=== PATIENT | male | born 1945 | race Caucasian/White ===

== ENCOUNTER → 2023-05-20 09:30 | Outpatient (REF) | payer MEDICARE, OTHER, SELFPAY | LOC: CLAB 09:30 | PROVIDERS: ATTENDING PHYSICIAN Surgery | DX: R97.20 Elevated prostate specific antigen [PSA] (principal) | CPT/HCPCS: 88305; 88344 ==

== ENCOUNTER → 2023-09-13 12:03 | Outpatient (REF) | payer MEDICARE, OTHER, SELFPAY | LOC: MRI 3T 12:03 | PROVIDERS: ATTENDING PHYSICIAN Radiology Radiation Oncology; FAMILY PHYSICIAN Family Medicine | DX: R97.20 Elevated prostate specific antigen [PSA] (principal) | CPT/HCPCS: 72197 ==

== ENCOUNTER → 2023-09-21 06:55 | Outpatient (REF) | payer MEDICARE, OTHER, SELFPAY ==
[2023-09-21 10:46] LABS: PSA, Total - Diagnostic 6.98 ng/ml (0.0-4.0)
== END ==
LOC: HWLAB 06:55
PROVIDERS: ATTENDING PHYSICIAN Radiology Radiation Oncology; FAMILY PHYSICIAN Family Medicine
DX: C61 Malignant neoplasm of prostate (principal)
CPT/HCPCS: 36415; 84153

== ENCOUNTER → 2023-11-10 06:40 | Outpatient (REF) | payer MEDICARE, OTHER, SELFPAY ==
[2023-11-10 10:05] LABS: % Basophils 0.2 % (0-2); % Eosinophils 1.7 % (0-6); % Immature Granulocytes 0.6 % (0-0.5); % Lymphocytes 30.8 % (20.5-51.1); % Monocytes 12.8 % (1.7-9.3); % Neutrophils 53.9 % (42.2-75.2); Absolute Eosinophils 0.1 10^3/uL (0-0.7); Absolute Lymphocytes 1.6 10^3/uL (1.2-3.4); Absolute Monocytes 0.7 10^3/uL (0.1-0.6); Absolute Neutrophils 2.8 10^3/uL (1.4-6.5); Hematocrit 41.9 % (39.0-52.0); Hemoglobin 14.6 g/dL (13.0-18.0); Mean Corp Hgb Conc. 34.8 g/dL (33.0-37.0); Mean Corpuscular Hgb 30.6 pg (27.0-31.0); Mean Corpuscular Volume 87.8 fL (80.0-94.0); Mean Platelet Volume 10.5 fL (7.4-10.4); Nucleated Red Blood Cells % 0 % (-); Platelet Count 137 10^3/uL (130-400); Red Blood Cell Count 4.77 10^6/uL (4.70-6.10); Red Cell Dist. Width 13.6 % (11.5-14.5); White Blood Cell Count 5.2 10^3/uL (4.8-10.8)
[2023-11-10 11:10] LABS: ALT (SGPT) 39 U/L (0-50); AST (SGOT) 36 U/L (17-59); Albumin 4.7 g/dl (3.5-5.0); Alkaline Phosphatase 63 U/L (38-126); Blood Urea Nitrogen 24 mg/dl (9-20); Carbon Dioxide 29 mmol/L (22-30); Chloride 101 mmol/L (98-107); Glucose 101 mg/dl (70-99); HDL Cholesterol 37 mg/dl; LDL Cholesterol, Calculated 109 mg/dl; Potassium 3.6 mmol/L (3.5-5.1); Sodium 139 mmol/L (135-145); Total Cholesterol 188 mg/dl (50-199); Total Protein 7.6 g/dl (6.3-8.2); Triglyceride 214 mg/dl (10-149); Very Low Density Lipoprotein 42 mg/dl (0-30); eGFR 43.83
== END ==
LOC: HWLAB 06:40
PROVIDERS: ATTENDING PHYSICIAN Physician Assistant
DX: I12.9 Hypertensive chronic kidney disease with stage 1 through stage 4 chronic kidney disease, or unspecified chronic kidney disease (principal); E78.2 Mixed hyperlipidemia; E66.09 Other obesity due to excess calories; E03.9 Hypothyroidism, unspecified; N18.31 Chronic kidney disease, stage 3a; E87.6 Hypokalemia
CPT/HCPCS: 36415; 80053; 80061; 85025

== ENCOUNTER → 2023-12-16 06:33 | Day surgery (SDC) | payer MEDICARE, OTHER, SELFPAY | LOC: GI 06:33 | PROVIDERS: ATTENDING PHYSICIAN Specialist; FAMILY PHYSICIAN Family Medicine | DX: Z12.11 Encounter for screening for malignant neoplasm of colon (principal); K63.5 Polyp of colon; D12.0 Benign neoplasm of cecum; D12.3 Benign neoplasm of transverse colon; D12.5 Benign neoplasm of sigmoid colon | CPT/HCPCS: 45385; 45380; 88305 ==

== ENCOUNTER → 2024-03-13 12:09 | Outpatient (REF) | payer MEDICARE, OTHER, SELFPAY ==
[2024-03-13 16:11] LABS: Blood Urea Nitrogen 25 mg/dl (9-20); Calcium 9.7 mg/dl (8.4-10.2); Carbon Dioxide 31 mmol/L (22-30); Chloride 97 mmol/L (98-107); Glucose 97 mg/dl (70-99); Potassium 3.4 mmol/L (3.5-5.1); Sodium 140 mmol/L (135-145); eGFR 51.45
== END ==
LOC: HWLAB 12:09
PROVIDERS: ATTENDING PHYSICIAN Physician Assistant
DX: I12.9 Hypertensive chronic kidney disease with stage 1 through stage 4 chronic kidney disease, or unspecified chronic kidney disease (principal)
CPT/HCPCS: 36415; 80048

== ENCOUNTER → 2024-04-17 11:52 | Outpatient (REF) | payer MEDICARE, OTHER, SELFPAY ==
[2024-04-17 16:37] LABS: Blood Urea Nitrogen 28 mg/dl (9-20); Calcium 9.8 mg/dl (8.4-10.2); Carbon Dioxide 30 mmol/L (22-30); Chloride 94 mmol/L (98-107); Glucose 113 mg/dl (70-99); Potassium 3.3 mmol/L (3.5-5.1); Sodium 137 mmol/L (135-145); eGFR 51.45
== END ==
LOC: HWLAB 11:52
PROVIDERS: ATTENDING PHYSICIAN Physician Assistant
DX: E87.6 Hypokalemia (principal)
CPT/HCPCS: 36415; 80048

== ENCOUNTER → 2024-04-30 12:08 | Outpatient (REF) | payer MEDICARE, OTHER, SELFPAY ==
[2024-04-30 16:24] LABS: Blood Urea Nitrogen 28 mg/dl (9-20); Calcium 9.4 mg/dl (8.4-10.2); Carbon Dioxide 29 mmol/L (22-30); Chloride 99 mmol/L (98-107); Glucose 96 mg/dl (70-99); Potassium 3.6 mmol/L (3.5-5.1); Sodium 140 mmol/L (135-145); eGFR 47.36
== END ==
LOC: HWLAB 12:08
PROVIDERS: ATTENDING PHYSICIAN Physician Assistant
DX: I12.9 Hypertensive chronic kidney disease with stage 1 through stage 4 chronic kidney disease, or unspecified chronic kidney disease (principal); C61 Malignant neoplasm of prostate; N18.31 Chronic kidney disease, stage 3a
CPT/HCPCS: 36415; 80048

== ENCOUNTER → 2024-05-28 06:55 | Outpatient (REF) | payer MEDICARE, OTHER, SELFPAY ==
[2024-05-28 09:45] LABS: % Basophils 0.3 % (0-2); % Eosinophils 0.5 % (0-6); % Immature Granulocytes 0.3 % (0-0.5); % Lymphocytes 24.2 % (20.5-51.1); % Monocytes 15.6 % (1.7-9.3); % Neutrophils 59.1 % (42.2-75.2); Absolute Lymphocytes 0.9 10^3/uL (1.2-3.4); Absolute Monocytes 0.6 10^3/uL (0.1-0.6); Absolute Neutrophils 2.2 10^3/uL (1.4-6.5); Hematocrit 38.4 % (39.0-52.0); Hemoglobin 13.3 g/dL (13.0-18.0); Mean Corp Hgb Conc. 34.6 g/dL (33.0-37.0); Mean Corpuscular Hgb 30.9 pg (27.0-31.0); Mean Corpuscular Volume 89.3 fL (80.0-94.0); Mean Platelet Volume 10.2 fL (7.4-10.4); Nucleated Red Blood Cells % 0 % (-); Platelet Count 115 10^3/uL (130-400); Red Cell Dist. Width 14.2 % (11.5-14.5); White Blood Cell Count 3.7 10^3/uL (4.8-10.8)
[2024-05-28 10:11] LABS: ALT (SGPT) 42 U/L (0-50); AST (SGOT) 36 U/L (17-59); Albumin 4.6 g/dl (3.5-5.0); Alkaline Phosphatase 71 U/L (38-126); Blood Urea Nitrogen 27 mg/dl (9-20); Calcium 9.5 mg/dl (8.4-10.2); Carbon Dioxide 30 mmol/L (22-30); Chloride 101 mmol/L (98-107); Glucose 100 mg/dl (70-99); HDL Cholesterol 37 mg/dl; LDL Cholesterol, Calculated 91 mg/dl; Potassium 3.5 mmol/L (3.5-5.1); Sodium 142 mmol/L (135-145); Total Bilirubin 0.9 mg/dl (0.2-1.3); Total Cholesterol 174 mg/dl (50-199); Total Protein 7.5 g/dl (6.3-8.2); Triglyceride 233 mg/dl (10-149); Very Low Density Lipoprotein 46 mg/dl (0-30); eGFR 51.45
[2024-05-28 10:31] LABS: Glycohemoglobin (HgbA1c) 5.3 % (4.0-5.6)
== END ==
LOC: HWLAB 06:55
PROVIDERS: ATTENDING PHYSICIAN Physician Assistant
DX: I12.9 Hypertensive chronic kidney disease with stage 1 through stage 4 chronic kidney disease, or unspecified chronic kidney disease (principal); E78.2 Mixed hyperlipidemia; E66.09 Other obesity due to excess calories; E03.9 Hypothyroidism, unspecified; N18.31 Chronic kidney disease, stage 3a; D40.0 Neoplasm of uncertain behavior of prostate; D17.21 Benign lipomatous neoplasm of skin and subcutaneous tissue of right arm; R97.20 Elevated prostate specific antigen [PSA]; R73.9 Hyperglycemia, unspecified
CPT/HCPCS: 36415; 80053; 80061; 83036; 85025

== ENCOUNTER → 2024-07-04 11:18 | Outpatient (REF) | payer MEDICARE, OTHER, SELFPAY ==
[2024-07-04 13:57] LABS: PSA, Total - Diagnostic < 0.06 ng/ml (0.0-4.0)
== END ==
LOC: HWLAB 11:18
PROVIDERS: ATTENDING PHYSICIAN Family Medicine Geriatric Medicine; FAMILY PHYSICIAN Family Medicine; REFERRING PHYSICIAN Radiology Radiation Oncology
DX: C61 Malignant neoplasm of prostate (principal)
CPT/HCPCS: 36415; 84153

== ENCOUNTER → 2024-08-30 06:46 | Outpatient (REF) | payer MEDICARE, OTHER, SELFPAY ==
[2024-08-30 09:40] LABS: % Basophils 0.2 % (0-2); % Eosinophils 0.7 % (0-6); % Immature Granulocytes 0.4 % (0-0.5); % Lymphocytes 21.6 % (20.5-51.1); % Monocytes 15.7 % (1.7-9.3); % Neutrophils 61.4 % (42.2-75.2); Absolute Monocytes 0.7 10^3/uL (0.1-0.6); Absolute Neutrophils 2.8 10^3/uL (1.4-6.5); Hemoglobin 14.3 g/dL (13.0-18.0); Mean Corp Hgb Conc. 35.8 g/dL (33.0-37.0); Mean Corpuscular Hgb 31.2 pg (27.0-31.0); Mean Corpuscular Volume 87.3 fL (80.0-94.0); Mean Platelet Volume 10.7 fL (7.4-10.4); Nucleated Red Blood Cells % 0 % (-); Platelet Count 124 10^3/uL (130-400); Red Blood Cell Count 4.58 10^6/uL (4.70-6.10); White Blood Cell Count 4.6 10^3/uL (4.8-10.8)
[2024-08-30 10:06] LABS: ALT (SGPT) 38 U/L (0-50); AST (SGOT) 31 U/L (17-59); Albumin 4.8 g/dl (3.5-5.0); Alkaline Phosphatase 58 U/L (38-126); Blood Urea Nitrogen 30 mg/dl (9-20); Calcium 9.9 mg/dl (8.4-10.2); Carbon Dioxide 30 mmol/L (22-30); Chloride 104 mmol/L (98-107); Glucose 107 mg/dl (70-99); Potassium 3.6 mmol/L (3.5-5.1); Sodium 144 mmol/L (135-145); Total Bilirubin 0.7 mg/dl (0.2-1.3); Total Protein 8.1 g/dl (6.3-8.2); eGFR 51.45
[2024-08-30 10:28] LABS: Free T4 1.06 ng/dl (0.78-2.19)
[2024-08-30 10:42] LABS: TSH 4.53 uIU/ml (0.47-4.68)
[2024-08-30 13:07] LABS: Glycohemoglobin (HgbA1c) 5.4 % (4.0-5.6)
== END ==
LOC: HWLAB 06:46
PROVIDERS: ATTENDING PHYSICIAN Physician Assistant
DX: I12.9 Hypertensive chronic kidney disease with stage 1 through stage 4 chronic kidney disease, or unspecified chronic kidney disease (principal); E78.2 Mixed hyperlipidemia; E66.09 Other obesity due to excess calories; E03.9 Hypothyroidism, unspecified; N18.31 Chronic kidney disease, stage 3a; D40.0 Neoplasm of uncertain behavior of prostate; D17.21 Benign lipomatous neoplasm of skin and subcutaneous tissue of right arm; R97.20 Elevated prostate specific antigen [PSA]; E66.811 Obesity, class 1; C61 Malignant neoplasm of prostate; R73.09 Other abnormal glucose
CPT/HCPCS: 36415; 80053; 83036; 84439; 84443; 85025

== ENCOUNTER → 2024-11-06 11:01 | Outpatient (REF) | payer MEDICARE, OTHER, SELFPAY ==
[2024-11-06 16:19] LABS: PSA, Total - Diagnostic < 0.06 ng/ml (0.0-4.0)
== END ==
LOC: HWLAB 11:01
PROVIDERS: ATTENDING PHYSICIAN Family Medicine Geriatric Medicine; FAMILY PHYSICIAN Family Medicine
DX: Z12.5 Encounter for screening for malignant neoplasm of prostate (principal); Z79.818 Long term (current) use of other agents affecting estrogen receptors and estrogen levels; C61 Malignant neoplasm of prostate
CPT/HCPCS: 36415; 84153; 84270; 84402; 84403

== ENCOUNTER → 2024-12-27 06:28 | Outpatient (REF) | payer MEDICARE, OTHER, SELFPAY ==
[2024-12-27 10:08] LABS: Hematocrit 39.8 % (39.0-52.0); Hemoglobin 13.7 g/dL (13.0-18.0); Mean Corp Hgb Conc. 34.4 g/dL (33.0-37.0); Mean Corpuscular Volume 89.6 fL (80.0-94.0); Nucleated Red Blood Cells % 0 % (-); Platelet Count 112 10^3/uL (130-400); Red Cell Dist. Width 13.2 % (11.5-14.5)
[2024-12-27 10:16] LABS: ALT (SGPT) 39 U/L (0-50); AST (SGOT) 28 U/L (17-59); Albumin 4.8 g/dl (3.5-5.0); Alkaline Phosphatase 68 U/L (38-126); Blood Urea Nitrogen 35 mg/dl (9-20); Calcium 9.9 mg/dl (8.4-10.2); Carbon Dioxide 27 mmol/L (22-30); Chloride 105 mmol/L (98-107); Glucose 99 mg/dl (70-99); HDL Cholesterol 43 mg/dl; LDL Cholesterol, Calculated 116 mg/dl; Potassium 3.8 mmol/L (3.5-5.1); Sodium 141 mmol/L (135-145); Total Protein 8.1 g/dl (6.3-8.2); Very Low Density Lipoprotein 33 mg/dl (0-30); eGFR 40.50
[2024-12-27 14:01] LABS: Glycohemoglobin (HgbA1c) 5.3 % (4.0-5.6)
== END ==
LOC: HWLAB 06:28
PROVIDERS: ATTENDING PHYSICIAN Physician Assistant
DX: C61 Malignant neoplasm of prostate (principal); I12.9 Hypertensive chronic kidney disease with stage 1 through stage 4 chronic kidney disease, or unspecified chronic kidney disease; E78.2 Mixed hyperlipidemia; R73.9 Hyperglycemia, unspecified; N18.31 Chronic kidney disease, stage 3a; E03.9 Hypothyroidism, unspecified; F41.9 Anxiety disorder, unspecified; D17.21 Benign lipomatous neoplasm of skin and subcutaneous tissue of right arm; R97.20 Elevated prostate specific antigen [PSA]; E66.09 Other obesity due to excess calories; Z68.32 Body mass index [BMI] 32.0-32.9, adult; E66.811 Obesity, class 1; Z00.00 Encounter for general adult medical examination without abnormal findings
CPT/HCPCS: 36415; 80053; 80061; 83036; 85025

== ENCOUNTER 2025-01-01 12:09 | Outpatient (RCR) | payer MEDICARE, OTHER, SELFPAY | END 2025-01-01 23:59 | disposition home or self-care (01) | LOC: RPT 12:09 | PROVIDERS: ATTENDING PHYSICIAN Family Medicine Geriatric Medicine; FAMILY PHYSICIAN Family Medicine | DX: M62.89 Other specified disorders of muscle (principal); Z73.6 Limitation of activities due to disability; Z85.46 Personal history of malignant neoplasm of prostate; Z92.3 Personal history of irradiation | CPT/HCPCS: 97110; 97112; 97162; 97530 ==

== ENCOUNTER 2025-01-29 07:12 | Outpatient (RCR) | payer MEDICARE, OTHER, SELFPAY | END 2025-01-29 23:59 | disposition home or self-care (01) | LOC: RPT 07:12 | PROVIDERS: ATTENDING PHYSICIAN Family Medicine Geriatric Medicine; FAMILY PHYSICIAN Family Medicine | DX: M62.89 Other specified disorders of muscle (principal); Z73.6 Limitation of activities due to disability; Z85.46 Personal history of malignant neoplasm of prostate; Z92.3 Personal history of irradiation | CPT/HCPCS: 97110; 97112; 97140; 97530 ==

== ENCOUNTER 2025-04-05 11:25 | Outpatient (RCR) | payer MEDICARE, OTHER, SELFPAY | END 2025-04-08 07:13 | disposition home or self-care (01) | LOC: RPT 11:25 | PROVIDERS: ATTENDING PHYSICIAN Family Medicine Geriatric Medicine; FAMILY PHYSICIAN Family Medicine | DX: M62.89 Other specified disorders of muscle (principal); Z73.6 Limitation of activities due to disability; Z85.46 Personal history of malignant neoplasm of prostate; Z92.3 Personal history of irradiation | CPT/HCPCS: 97530 ==

== ENCOUNTER → 2025-04-05 11:28 | Outpatient (REF) | payer MEDICARE, OTHER, SELFPAY ==
[2025-04-05 12:12] LABS: Hematocrit 39.1 % (39.0-52.0); Hemoglobin 13.5 g/dL (13.0-18.0); Mean Corp Hgb Conc. 34.5 g/dL (33.0-37.0); Mean Corpuscular Volume 88.9 fL (80.0-94.0); Nucleated Red Blood Cells % 0 % (-); Platelet Count 168 10^3/uL (130-400); Red Cell Dist. Width 13.0 % (11.5-14.5)
== END ==
LOC: REG 11:28
PROVIDERS: ATTENDING PHYSICIAN Physician Assistant
DX: D72.819 Decreased white blood cell count, unspecified (principal)
CPT/HCPCS: 36415; 85025